=== PATIENT | female | born 1985 ===

== ENCOUNTER 2016-12-08 07:25 | Inpatient (IN) | payer OTHER ==
[2016-12-08] MEDS ORDERED: diPHENhydraMINE PO* 25 MG PO PRN (08:53)
[2016-12-08] MEDS ORDERED: ceFAZolin 2 GM PREMIX (*) 2 GM/50 ML BAG IVPB ONE (09:00)
[2016-12-08] MEDS ORDERED: OBEPIDURAL* 0 ML ONE (09:47)
[2016-12-08] MEDS ORDERED: ceFAZolin 2 GM PREMIX (*) 0 GM/0 ML BAG IVPB ONE (09:51)
[2016-12-08] MEDS ORDERED: fentaNYL* 50 MCG/ML 2 ML VIAL (100 MCG VIAL) ONE (10:10)
[2016-12-08 10:22] LABS: Hematocrit 38 % (35-47); Hemoglobin 12.5 g/dl (12.0-16.0); Mean Corpuscular HGB Conc 33 g/dl (31-36); Mean Corpuscular Hemoglobin 28 pg (27-31); Mean Corpuscular Volume 85 fL (80-97); Mean Platelet Volume 8 um3 (7.4-10.4); Red Blood Count 4.45 10^6/ul (4.0-5.4); Red Cell Distribution Width 14 % (10.5-15); White Blood Count 15.3 10^3/ul (3.5-10.8)
[2016-12-08] MEDS ORDERED: Oxytocin in LR* 20 UNITS/1,000 ML BAG IVPB ONE (10:55)
[2016-12-08] MEDS ORDERED: Dibucaine 1% 28.35 GM TUBE PR PRN (11:57)
[2016-12-08] MEDS ORDERED: Glycerin ADULT SUPP PR PRN (11:57)
[2016-12-08] MEDS: Ibuprofen TAB* 600 MG PO PRN ×2 (14:34→21:09)
[2016-12-08] MEDS: Docusate CAP* 100 MG PO SCH ×2 (14:35→21:09)
[2016-12-08] MEDS ORDERED: Lidocaine 1% MPF* 2 ML VIAL ONE (16:36)
[2016-12-08] MEDS ORDERED: ceFAZolin 1 GM VIAL(*) 1 GM in NS 0.9% 50 ML* 50 ML IVPB SCH (17:00)
[2016-12-08] MEDS: Witch Hazel PAD* JAR TOPICAL PRN (21:09)
[2016-12-09] MEDS: Simethicone TAB* 80 MG TAB.CHEW PO SCH ×2 (03:34→03:35)
[2016-12-09] MEDS: Ibuprofen TAB* 600 MG PO PRN ×4 (04:15→22:00)
[2016-12-09 07:06] LABS: Hematocrit 35 % (35-47); Hemoglobin 11.7 g/dl (12.0-16.0); Mean Corpuscular HGB Conc 34 g/dl (31-36); Mean Corpuscular Hemoglobin 29 pg (27-31); Mean Corpuscular Volume 85 fL (80-97); Mean Platelet Volume 8 um3 (7.4-10.4); Red Blood Count 4.09 10^6/ul (4.0-5.4); Red Cell Distribution Width 15 % (10.5-15); White Blood Count 13.9 10^3/ul (3.5-10.8)
[2016-12-09] MEDS ORDERED: Ferrous Gluconate TAB* 324 MG TAB PO SCH (09:00)
[2016-12-09] MEDS: Docusate CAP* 100 MG PO SCH ×3 (09:05→21:40)
[2016-12-09] MEDS: Acetaminophen TAB* 325 MG PO PRN ×2 (17:26→21:40)
[2016-12-10] MEDS: Ibuprofen TAB* 600 MG PO PRN (05:53)
[2016-12-10 07:44] VITALS: BP 115/73
[2016-12-10] MEDS: Witch Hazel PAD* JAR TOPICAL PRN (09:32)
[2016-12-10] MEDS: Docusate CAP* 100 MG PO SCH (09:32)
== END 2016-12-10 12:00 | disposition home or self-care (01) | DRG 560 ==
LOC: MCHOBOUT 07:25 → MCHOB 08:28
PROVIDERS: ADMIT Obstetrics & Gynecology; ATTEND Obstetrics & Gynecology
PROC: 10E0XZZ Delivery of Products of Conception, External Approach (ICD-10-PCS; principal; 2016-12-08)
PROC: 10907ZC Drainage of Amniotic Fluid, Therapeutic from Products of Conception, Via Natural or Artificial Opening (ICD-10-PCS; 2016-12-08)
PROC: 0HQ9XZZ Repair Perineum Skin, External Approach (ICD-10-PCS; 2016-12-08)
DX: O99.824 Streptococcus B carrier state complicating childbirth (principal); O69.81X0 Labor and delivery complicated by cord around neck, without compression, not applicable or unspecified; O70.0 First degree perineal laceration during delivery; Z3A.38 38 weeks gestation of pregnancy; Z37.0 Single live birth
CPT/HCPCS: 36415; 85025; 86850; 86900; 86901; A9270-GY; J0690; J3010

== ENCOUNTER 2019-08-21 19:58 | Emergency (ER) | payer OTHER ==
[2019-08-21] MEDS ORDERED: NS 0.9% 1000 ML** 1,000 ML IV ONE (20:44)
[2019-08-21] MEDS ORDERED: diPHENhydraMINE IV* 50 MG/ML 1 ml VIAL (BENADRYL) IM ONE (20:44)
[2019-08-21] MEDS ORDERED: Ondansetron INJ* 2 MG/ML VIAL IV ONE (20:44)
[2019-08-21] MEDS ORDERED: Ketorolac INJ* 30 MG/ML 1 ML VIAL IV ONE (20:44)
--- NOTE | 2019-08-21 20:50 | ED ---
Complex/Multi-Sys Presentation - HPI Summary HPI Summary: Patient is a 34 y/o F presenting to [facility] with chief complaint of NOVAK. Associated Sx include bilateral posterior neck pain, sore throat, chills, diaphoresis, nausea, and post-nasal drip. Cough, vomiting, diarrhea and changes in vision are denied. NOVAK onset yesterday morning, 08/20/19, and has been constant since onset. NOVAK is characterized as "throbbing" and is noted to be located at her temples and behind her eyes. She notes that she has been treating Sx with ibuprofen with minimal relief. She denies PMHx of HAs and any other medical issues as well as FMHx of HAs. She denies tobacco, alcohol, and substance usage. LNMP was "a couple of days ago". On triage, pain is rated 7/ 10. Home medications and allergies are reviewed. - History Of Current Complaint Chief Complaint: EDHeadache Time Seen by Provider: 08/21/19 20:36 Hx Obtained From: Patient Onset/Duration: Lasting Days, Still Present Timing: Constant, Days Severity Currently: Severe Severity Initially: Severe Location: Pain At: - head, neck Character: Throbbing Associated Signs And Symptoms: Positive: Headache, Nausea, Diaphoresis, Other - positive - neck pain, sore throat, chills, post-nasal drip; negative - cough, changes in vision. Negative: Vomiting, Diarrhea - Allergies/Home Medications Allergies/Adverse Reactions: Allergies Allergy/AdvReac Type Severity Reaction Status Date / Time Penicillins Allergy Unknown Unknown Verified 08/21/19 22:22 Reaction Details pseudoephedrine Allergy Nausea And Verified 08/21/19 21:19 [From Sudafed] Vomiting PMH/Surg Hx/FS Hx/Imm Hx Sensory History: Denies: Hx Legally Blind, Hx Deafness Opthamlomology History: Denies: Hx Legally Blind EENT History: Denies: Hx Deafness Neurological History: Denies: Hx Headaches Infectious Disease History: No Infectious Disease History: Denies: Traveled Outside the [place] in Last 30 Days - Family History Known Family History: Positive: Other - FMHx of headaches is denied - Social History Alcohol Use: None Substance Use Type: Reports: None Smoking Status (MU): Never Smoked Tobacco Review of Systems Positive: Chills, Skin Diaphoresis Eyes: Other - negative - changes in vision ENT: Other - positive - post nasal drip Positive: Sore Throat Negative: Cough Positive: Nausea. Negative: Vomiting, Diarrhea Musculoskeletal: Other - positive - neck pain Positive: Headache All Other Systems Reviewed And Are Negative: Yes Physical Exam - Summary Physical Exam Summary: General: Well-developed, Well-nourished female. Mild discomfort at rest. HEENT: Normocephalic, Atraumatic. Eyes: Conjuctiva normal, PERRL. Ears: TMs within normal limits. Nares: (-) discharge, (-) erythema. Oropharynx: Clear, mucous membranes moist, (-) exudates. Neck: Soft, FROM, (-) lymphadenopathy, (-) thyromegaly, (-) JVD. Cardiovascular: Normal sinus rhythm, (-) murmur. Lungs: Clear to auscultation bilaterally (-) wheezes, (-) rales, (-) rhonchi. Abdomen: Soft, non-tender, non-distended, (-) organomegaly, normal bowel sounds. Back: (-) CVA tenderness Extremities: No edema. Skin: Warm, dry, (-) rash. Neuro: Alert and oriented x3, no focal deficits. Psychiatric: Mood normal, affect normal. Triage Information Reviewed: Yes Vital Signs On Initial Exam: Initial Vitals Temp Pulse Resp BP Pulse Ox 98.5 F 138 15 118/77 97 08/21/19 19:59 08/21/19 19:59 08/21/19 19:59 08/21/19 19:59 08/21/19 19:59 Vital Signs Reviewed: Yes Procedures - Sedation Patient Received Moderate/Deep Sedation with Procedure: No Diagnostics - Vital Signs Vital Signs Temp Pulse Resp BP Pulse Ox 08/21/19 19:59 98.5 F 138 15 118/77 97 - Laboratory Result Diagrams: 08/21/19 20:54 08/21/19 20:54 Lab Statement: Any lab studies that have been ordered have been reviewed, and results considered in the medical decision making process. Re-Evaluation - Re-Evaluation First Eval Re-Evaluation Time: 21:46 Change: Improved Comment: Patient reports that her NOVAK intensity went from 7/10 to 5/10 and then to 3/10 after medications. Awaiting labs at this time. Second Eval Re-Evaluation Time: 22:08 Change: Improved Comment: Labs discussed with the patient. Patient is significantly improved. She is discharged to home and will follow up with PCP. Complex Multi-Symp Course/Dx Course Of Treatment: 34-year-old female with URI symptoms and headache. Symptoms improved significantly after treatment. Patient discharged home. Advised plenty of rest and fluids. Tylenol or ibuprofen as needed. Off work until Wednesday. Follow-up with PCP. Follow up sooner for any worsening symptoms. - Diagnoses Provider Diagnoses: Viral illness, Headache Discharge ED - Sign-Out/Discharge Documenting (check all that apply): Patient Departure - discharge - Discharge Plan Condition: Stable Disposition: HOME Patient Education Materials: Acute Headache (ED), Viral Syndrome (ED) Forms: *Work Release Referrals: Hayde Noel MD [Primary Care Provider] - 3 Days Additional Instructions: TAKE TYLENOL AND IBUPROFEN, REST, AND DRINK PLENTY OF FLUIDS. PLEASE RETURN TO ED FOR ANY NEW OR CONCERNING SYMPTOMS. FOLLOW UP WITH YOUR PRIMARY CARE PHYSICIAN WITHIN 1-3 DAYS. - Billing Disposition and Condition Condition: STABLE Disposition: Home - Attestation Statements Document Initiated by Abdon: Yes Documenting Scribe: JUAN M CENTENO Provider For Whom Abdon is Documenting (Include Credential): JOSEFINA TYSON MD Scribe Attestation: I, JUAN M CENTENO, scribed for JOSEFINA TYSON MD on 08/22/19 at 0057. Scribe Documentation Reviewed: Yes Provider Attestation: The documentation as recorded by the JUAN M pastor accurately reflects the service I personally performed and the decisions made by me, JOSEFINA TYSON MD Status of Scribe Document: Viewed
[2019-08-21 21:08] LABS: ABS Basophils 0.1 10^3/ul (0-0.2); ABS Lymphocytes 0.9 10^3/ul (1.0-4.8); ABS Monocytes 0.9 10^3/ul (0-0.8); ABS Neutrophils 9.1 10^3/ul (1.5-7.7); Eosinophil % 0.1 %; Hematocrit 38 % (35-47); Hemoglobin 13.1 g/dL (12.0-16.0); Mean Corpuscular HGB Conc 34 g/dL (31-36); Mean Corpuscular Hemoglobin 29 pg (27-31); Mean Corpuscular Volume 83 fL (80-97); Mean Platelet Volume 7.7 fL (7.4-10.4); Nucleated Red Blood Cells % 0.1; Platelet Count 250 10^3/uL (150-450); Red Blood Count 4.59 10^6 /uL (3.70-4.87); Red Cell Distribution Width 14 % (10-15)
[2019-08-21 21:13] LABS: INR 1.33 (0.82-1.09)
[2019-08-21 21:18] LABS: Albumin/Globulin Ratio 1.4 (1-3); Calcium 8.8 mg/dL (8.6-10.3); EGFR African American 116.5 (>60); EGFR Non-African American 96.3 (>60); Globulin 2.9 g/dL (2-4); Potassium 3.3 mmol/L (3.5-5.0); Total Bilirubin 0.4 mg/dL (0.2-1.0); Total Protein 6.9 g/dL (6.4-8.9)
[2019-08-21 22:08] LABS: Urine Appearance Clear; Urine Bacteria Absent (Absent); Urine Bilirubin Negative (Negative); Urine Blood 1+ (Negative); Urine Color Yellow; Urine Glucose Negative (Negative); Urine Ketones Negative (Negative); Urine Nitrite Negative (Negative); Urine Protein Negative (Negative); Urine Red Blood Cell Trace(0-2/hpf) (Absent); Urine Specific Gravity 1.004 (1.010-1.030); Urine Squamous Epithelial Cell Present (Absent); Urine Urobilinogen Negative (Negative); Urine White Blood Cell Absent (Absent)
[2019-08-21 22:12] VITALS: BP 105/64
[2019-08-21] MEDS ORDERED: Dibucaine 1% 28.35 GM TUBE PR PRN (22:13)
[2019-08-21] MEDS ORDERED: Docusate CAP* 100 MG PO PRN (22:13)
[2019-08-21] MEDS ORDERED: Acetaminophen TAB* 325 MG PO PRN (22:13)
[2019-08-21] MEDS ORDERED: Ibuprofen TAB* 600 MG PO PRN (22:13)
[2019-08-21] MEDS ORDERED: Witch Hazel PAD* JAR TOPICAL PRN (22:13)
== END 2019-08-21 22:16 | disposition home or self-care (01) ==
LOC: ED 19:58
DX: R51 Headache (principal); B34.9 Viral infection, unspecified; Z88.0 Allergy status to penicillin; Z88.8 Allergy status to other drugs, medicaments and biological substances
CPT/HCPCS: 36415; 80053; 81003; 81015; 83605; 85025; 85610; 96361; 96372; 96374; 96375; 99282; J1200; J1885; J2405